=== PATIENT | female | born 1940 | race Two or more races ===

== ENCOUNTER 2017-03-22 10:21 | Outpatient (CLI) | payer OTHER ==
[~2017-03-22 10:21] MED LIST: CATAFLAM50 MG; DIOVAN HCT 1601 EAC1; DIOVAN160 M1 PO; FAMOTIDINE20 MG PO; FLOVENT HFA12 G1; HumaLOG 100 UNIT/1 M SUBCUTANEO; LEVAQUIN750 MG PO; LIPITOR20 MG PO; Pulmicort 0.5 MG/2 M IH; VASOTEC20 MG; XOPENEX0.63 MG/3 IH; ZANTAC 7575 MG
== END 2017-03-22 10:27 | disposition home or self-care (01) ==
LOC: RAD 10:21
DX: K57.20 Diverticulitis of large intestine with perforation and abscess without bleeding (principal); Z93.3 Colostomy status; K57.32 Diverticulitis of large intestine without perforation or abscess without bleeding

== ENCOUNTER 2017-04-04 10:00 | Inpatient (IN) | payer OTHER ==
[~2017-04-04] VITALS: Ht 152.4 cm; Wt 67.6 kg
[2017-04-04] MEDS ORDERED: SULFAMETHOXAZO1 EACH PO (13:09)
== END 2017-04-19 18:51 | disposition home or self-care (01) | DRG 329 ==
LOC: ADM 10:00 → EDSTATUS 10:00 → SURG 04-11 10:00 → O/R 04-11 10:27 → SURG 04-11 10:27
PROVIDERS: Colon & Rectal Surgery
PROC: 0DN80ZZ Release Small Intestine, Open Approach (ICD-10-PCS; 2017-04-11)
PROC: 0DT80ZZ Resection of Small Intestine, Open Approach (ICD-10-PCS; 2017-04-11)
PROC: 0DQ80ZZ Repair Small Intestine, Open Approach (ICD-10-PCS; 2017-04-11)
PROC: 0DTE0ZZ Resection of Large Intestine, Open Approach (ICD-10-PCS; principal; 2017-04-11 13:45)
PROC: 3E0F7GC Introduction of Other Therapeutic Substance into Respiratory Tract, Via Natural or Artificial Opening (ICD-10-PCS; 2017-04-12)
PROC: 02HV33Z Insertion of Infusion Device into Superior Vena Cava, Percutaneous Approach (ICD-10-PCS; 2017-04-14)
PROC: 30233N1 Transfusion of Nonautologous Red Blood Cells into Peripheral Vein, Percutaneous Approach (ICD-10-PCS; 2017-04-16)
PROC: 4A033R1 Measurement of Arterial Saturation, Peripheral, Percutaneous Approach (ICD-10-PCS; 2017-04-18)
DX: K57.20 Diverticulitis of large intestine with perforation and abscess without bleeding (principal); J95.821 Acute postprocedural respiratory failure; J18.9 Pneumonia, unspecified organism; K94.02 Colostomy infection; L03.311 Cellulitis of abdominal wall; K91.71 Accidental puncture and laceration of a digestive system organ or structure during a digestive system procedure; J45.41 Moderate persistent asthma with (acute) exacerbation; J44.1 Chronic obstructive pulmonary disease with (acute) exacerbation; J95.89 Other postprocedural complications and disorders of respiratory system, not elsewhere classified; J98.11 Atelectasis; G40.89 Other seizures; B37.49 Other urogenital candidiasis; Y83.3 Surgical operation with formation of external stoma as the cause of abnormal reaction of the patient, or of later complication, without mention of misadventure at the time of the procedure; Y92.098 Other place in other non-institutional residence as the place of occurrence of the external cause; K66.0 Peritoneal adhesions (postprocedural) (postinfection); G47.33 Obstructive sleep apnea (adult) (pediatric); I10 Essential (primary) hypertension; N99.89 Other postprocedural complications and disorders of genitourinary system; D64.89 Other specified anemias

== ENCOUNTER → 2018-04-06 | Day surgery (SDC) | payer OTHER ==
[~2018-04-06] MED LIST changes: +SULFAMETHOXAZO1 EACH PO
== END | disposition home or self-care (01) ==
LOC: ADM 04-03 14:45 → AMB-ENDOS 10:58
DX: K57.32 Diverticulitis of large intestine without perforation or abscess without bleeding (principal); K64.1 Second degree hemorrhoids

== ENCOUNTER 2020-08-12 10:44 | Outpatient (CLI) | payer OTHER | END 2020-08-12 10:59 | disposition home or self-care (01) | LOC: MAMO-SONO 10:44 | PROVIDERS: ATTEND Internal Medicine | DX: N63.11 Unspecified lump in the right breast, upper outer quadrant (principal); Z12.31 Encounter for screening mammogram for malignant neoplasm of breast; J44.9 Chronic obstructive pulmonary disease, unspecified; K57.20 Diverticulitis of large intestine with perforation and abscess without bleeding; K57.32 Diverticulitis of large intestine without perforation or abscess without bleeding; G72.81 Critical illness myopathy; E66.01 Morbid (severe) obesity due to excess calories; E88.89 Other specified metabolic disorders; E66.8 Other obesity; E78.9 Disorder of lipoprotein metabolism, unspecified; Z68.42 Body mass index [BMI] 45.0-49.9, adult; Z13.820 Encounter for screening for osteoporosis; G47.33 Obstructive sleep apnea (adult) (pediatric) ==

== ENCOUNTER → 2020-08-12 | Outpatient (CLI) | payer OTHER | END | disposition home or self-care (01) | LOC: NUCLEAR 14:15 | PROVIDERS: ATTEND Internal Medicine | DX: M81.0 Age-related osteoporosis without current pathological fracture (principal) ==

== ENCOUNTER 2021-08-17 14:04 | Outpatient (CLI) | payer OTHER | END 2021-08-17 14:22 | disposition home or self-care (01) | LOC: MAMO-SONO 14:04 | PROVIDERS: ATTEND Internal Medicine | DX: Z13.820 Encounter for screening for osteoporosis (principal); Z12.11 Encounter for screening for malignant neoplasm of colon; Z68.42 Body mass index [BMI] 45.0-49.9, adult; E66.01 Morbid (severe) obesity due to excess calories; E88.89 Other specified metabolic disorders; K57.20 Diverticulitis of large intestine with perforation and abscess without bleeding; K57.32 Diverticulitis of large intestine without perforation or abscess without bleeding; G72.81 Critical illness myopathy; J44.9 Chronic obstructive pulmonary disease, unspecified; G47.33 Obstructive sleep apnea (adult) (pediatric); E66.8 Other obesity; E78.9 Disorder of lipoprotein metabolism, unspecified ==

== ENCOUNTER 2023-05-16 09:34 | Outpatient (CLI) | payer OTHER | END 2023-05-16 09:37 | disposition home or self-care (01) | LOC: MAMO-SONO 09:34 | PROVIDERS: ATTEND Internal Medicine | DX: G47.30 Sleep apnea, unspecified (principal); G47.31 Primary central sleep apnea; E78.2 Mixed hyperlipidemia; E66.01 Morbid (severe) obesity due to excess calories; Z12.11 Encounter for screening for malignant neoplasm of colon; I10 Essential (primary) hypertension; G47.33 Obstructive sleep apnea (adult) (pediatric); E66.8 Other obesity; Z12.31 Encounter for screening mammogram for malignant neoplasm of breast ==

== ENCOUNTER 2023-05-18 13:13 | Outpatient (CLI) | payer OTHER | END 2023-05-18 13:14 | disposition home or self-care (01) | LOC: NUCLEAR 13:13 | PROVIDERS: ATTEND Internal Medicine | DX: Z13.820 Encounter for screening for osteoporosis (principal); M81.0 Age-related osteoporosis without current pathological fracture ==

== ENCOUNTER 2024-06-06 13:25 | Outpatient (CLI) | payer OTHER | END 2024-06-06 13:38 | disposition home or self-care (01) | LOC: MAMO-SONO 13:25 | PROVIDERS: ATTEND Internal Medicine | DX: N60.11 Diffuse cystic mastopathy of right breast (principal); N60.12 Diffuse cystic mastopathy of left breast; G47.30 Sleep apnea, unspecified; G47.31 Primary central sleep apnea; E78.2 Mixed hyperlipidemia; E66.01 Morbid (severe) obesity due to excess calories; Z12.11 Encounter for screening for malignant neoplasm of colon; Z13.820 Encounter for screening for osteoporosis; I10 Essential (primary) hypertension; G47.33 Obstructive sleep apnea (adult) (pediatric); Z12.31 Encounter for screening mammogram for malignant neoplasm of breast ==